=== PATIENT | male | born 1985 | race Two or more races ===

== ENCOUNTER → 2020-09-12 | Outpatient (CLI) | payer BC ==
--- NOTE | 2020-09-12 16:04 | RAD ---
Complete retroperitoneal ultrasound INDICATION: Hydronephrosis COMPARISON: None FINDINGS: Grayscale and color Doppler ultrasound imaging of the retroperitoneum focused on the kidneys and blad espinoza show a right kidney measuring 10.8 x 5.9 x 4 m and a left kidney measuring 10.7 x 6.8 x 5.9 cm. N o hydronephrosis or shadowing stones in either kidney. Urinary bladder is empty with a Renteria catheter in place. IMPRESSION: No hydronephrosis in either kidney. Empty bladder. Electronically signed by: Torres Rader MD (09/12/2020 4:02 PM) [id number]
== END ==
LOC: US 08:00
PROVIDERS: ATTEND Specialist
DX: N13.1 Hydronephrosis with ureteral stricture, not elsewhere classified (principal)
CPT/HCPCS: 76770